=== PATIENT | male | born 1955 | race Caucasian/White ===

== ENCOUNTER 2021-03-27 20:57 | Inpatient (IN) | payer MEDICARE ==
[~2021-03-27 20:57] MED LIST: Iopamidol-370 76% 500 ML 1 ML ONE
[2021-03-27] MEDS ORDERED: Morphine 4 MG/ML VIAL ONE (21:34)
[2021-03-27] MEDS ORDERED: Ondansetron PF 4 MG/2 ML Vial ONE (21:35)
[2021-03-27] MEDS ORDERED: Tranexamic Acid 1,000 MG/10 ML VIAL ONE (21:35)
[2021-03-27 21:51] LABS: #Basophils 0.1 thou/uL (0.0-0.2); #Eosinphils 0.2 thou/uL (0.0-0.7); #Lymphocytes 1.9 thou/uL (1.20-3.40); #Monocytes 0.7 thou/uL (0.11-0.59); #Neutrophils 5.6 thou/uL (1.40-6.50); %Basophils 0.9 % (0.0-1.0); %Eosinophils 1.8 % (0.0-10.0); %Lymphocytes 22.9 % (21.0-51.0); %Monocytes 8.7 % (0.0-10.0); %Neutrophils 65.7 % (42.0-75.0); Hemoglobin 15.8 g/dL (14.0-18.0); Mean Corpuscular HGB CONC 34.2 g/dL (32.0-36.0); Mean Corpuscular Hemoglobin 32.7 pg (27.0-31.0); Mean Corpuscular Volume 95.5 fL (78.0-98.0); Mean Platelet Volume 6.9 fL (7.4-10.4); Platelet Count 253 thou/uL (130-400); RBC Distribution Width 12.2 % (11.5-14.5); Red Blood Cell (RBC) Count 4.83 mill/uL (4.70-6.10); White Blood Cell (WBC) Count 8.5 thou/uL (4.8-10.8)
[2021-03-27 22:06] LABS: INR-International Normal Ratio 0.9; PTT 29.3 sec (22.9-36.1); Prothrombin Time 12.4 sec (12.0-14.7)
[2021-03-27 22:12] LABS: ALT (SGPT) 27 U/L (8-55); AST (SGOT) 26 U/L (5-34); Albumin 4.6 g/dL (3.4-4.8); Alkaline Phosphatase 103 U/L (40-110); Anion Gap 18 mmol/L (10-20); BUN (Urea Nitrogen) 8 mg/dL (8.4-25.7); Bilirubin, Total 0.6 mg/dL (0.2-1.2); Calc. Creatinine Clearance 0 mL/min (70-130); Calcium 9.5 mg/dL (7.8-10.44); Carbon Dioxide 19 mmol/L (23-31); Chloride 91 mmol/L (98-107); Globulin 3.1 g/dL (2.4-3.5); Glucose 97 mg/dL (80-115); Lipase 23 U/L (8-78); Potassium 4.1 mmol/L (3.5-5.1); Protein, Total 7.7 g/dL (5.8-8.1); Sodium 124 mmol/L (136-145)
[2021-03-27] MEDS ORDERED: Azithromycin 500 MG VIAL ONE (23:14)
[2021-03-27] MEDS ORDERED: cefTRIAXone\\ROCEPHIN 2 GM VIAL ONE (23:14)
[2021-03-27] MEDS ORDERED: Acetaminophen 325 MG TAB PO PRN (23:15)
[2021-03-27] MEDS ORDERED: Ondansetron ODT 4 MG TAB PO PRN (23:15)
[2021-03-27] MEDS ORDERED: Ondansetron PF 4 MG/2 ML Vial IVP PRN (23:15)
[2021-03-27] MEDS ORDERED: Guaifenesin DM 100-10/5 ML UDCUP PO PRN (23:15)
[2021-03-27] MEDS ORDERED: Lorazepam 2 MG/ML VIAL SLOW IVP PRN (23:23)
[2021-03-28] MEDS ORDERED: Nicotine 14 MG PATCH ONE (00:23)
[2021-03-28] MEDS ORDERED: Thiamine HCl 200 MG/2 ML VIAL IM SCH (00:30)
[2021-03-28 00:31] LABS: Phosphorus 3.8 mg/dL (2.3-4.7)
[2021-03-28] MEDS: Nicotine 14 MG PATCH TD SCH (00:34)
[2021-03-28 00:50] LABS: Anion Gap 15 mmol/L (10-20); BUN (Urea Nitrogen) 8 mg/dL (8.4-25.7); Calc. Creatinine Clearance 0 mL/min (70-130); Calcium 9.3 mg/dL (7.8-10.44); Carbon Dioxide 21 mmol/L (23-31); Chloride 94 mmol/L (98-107); Glucose 95 mg/dL (80-115); Potassium 4.3 mmol/L (3.5-5.1); Sodium 126 mmol/L (136-145)
[2021-03-28 00:57] LABS: Troponin I 0.021 ng/mL (< 0.028)
[2021-03-28] MEDS ORDERED: Carvedilol 3.125 MG TAB PO SCH ×2 (01:00→19:30)
[2021-03-28 01:03] VITALS: BMI 24.3
[2021-03-28] MEDS ORDERED: Sodium Chloride 0.9% 1,000 ML IV SCH (01:30)
[2021-03-28 01:49] LABS: SARS-CoV-2 NAA Rapid Test Not Detected (NotDetected)
[2021-03-28 03:37] LABS: Bacteria/HPF None Seen HPF (None Seen); Bilirubin Negative (Negative); Blood, Urine Negative (Negative); Clarity Clear (Clear); Glucose, Urine (Dipstick) Normal (Negative); Ketone, Urine Negative (Negative); Leukocyte Negative Leu/uL (Negative); Nitrite 2+ (Negative); Protein, Urine (Dipstick) Negative (Neg-Trace); RBC/HPF 0-3 HPF (0-3); Specific Gravity, Urine 1.041 (1.002-1.036); Squamous Epithelial None Seen HPF (0-3); Urobilinogen Normal mg/dL (Less than 2); WBC/HPF 0-3 HPF (0-3); pH, Urine 6.5 (5.0-9.0)
[2021-03-28 05:47] LABS: #Eosinphils 0.1 thou/uL (0.0-0.7); #Lymphocytes 1.6 thou/uL (1.20-3.40); #Monocytes 0.7 thou/uL (0.11-0.59); #Neutrophils 6.9 thou/uL (1.40-6.50); %Basophils 0.5 % (0.0-1.0); %Eosinophils 0.7 % (0.0-10.0); %Lymphocytes 17.4 % (21.0-51.0); %Monocytes 7.8 % (0.0-10.0); %Neutrophils 73.6 % (42.0-75.0); Hemoglobin 14.6 g/dL (14.0-18.0); Mean Corpuscular HGB CONC 34.2 g/dL (32.0-36.0); Mean Corpuscular Hemoglobin 32.8 pg (27.0-31.0); Mean Corpuscular Volume 95.9 fL (78.0-98.0); Mean Platelet Volume 6.9 fL (7.4-10.4); Platelet Count 227 thou/uL (130-400); RBC Distribution Width 12.3 % (11.5-14.5); Red Blood Cell (RBC) Count 4.45 mill/uL (4.70-6.10); White Blood Cell (WBC) Count 9.4 thou/uL (4.8-10.8)
[2021-03-28 06:06] LABS: Anion Gap 11 mmol/L (10-20); BUN (Urea Nitrogen) 10 mg/dL (8.4-25.7); Calc. Creatinine Clearance 113 mL/min (70-130); Calcium 9.2 mg/dL (7.8-10.44); Carbon Dioxide 24 mmol/L (23-31); Chloride 97 mmol/L (98-107); Glucose 88 mg/dL (80-115); Potassium 4.4 mmol/L (3.5-5.1); Sodium 128 mmol/L (136-145)
[2021-03-28 06:11] LABS: Troponin I 0.018 ng/mL (< 0.028)
[2021-03-28] MEDS ORDERED: Lisinopril 10 MG TAB PO SCH (09:00)
[2021-03-28] MEDS: Folic Acid 1 MG TAB PO SCH (12:08)
[2021-03-28] MEDS: Multivitamin W/ Minerals 1 TAB PO SCH (12:09)
[2021-03-28 12:37] LABS: Hemoglobin 14.8 g/dL (14.0-18.0)
[2021-03-28] MEDS ORDERED: cefTRIAXone\\ROCEPHIN 1 GM in Sodium Chloride 0.9% 100 ML IVPB SCH (23:00)
[2021-03-28] MEDS ORDERED: Azithromycin 500 MG in Sodium Chloride 0.9% 250 ML 250 ML IVPB SCH (23:59)
[2021-03-29] MEDS: Nicotine 14 MG PATCH TD SCH (01:47)
[2021-03-29] MEDS: Multivitamin W/ Minerals 1 TAB PO SCH (08:31)
[2021-03-29] MEDS: Lisinopril 20 MG TAB PO SCH (08:31)
[2021-03-29] MEDS: Carvedilol 6.25 MG TAB PO SCH ×2 (08:32→16:45)
[2021-03-29] MEDS: Thiamine 100 MG TAB PO SCH (08:32)
[2021-03-29] MEDS: Folic Acid 1 MG TAB PO SCH (08:32)
[2021-03-29] MEDS: Magnesium Oxide 400 MG TAB PO SCH (08:32)
[2021-03-29] MEDS ORDERED: Lorazepam 2 MG/ML VIAL SLOW IVP PRN (15:53)
[2021-03-29] MEDS: Piperacillin/Tazobactam 3.375 GM in Sodium Chloride 0.9% 100 ML IVPB SCH ×2 (16:45→22:49)
[2021-03-29] MEDS: Sodium Chloride 0.9% 1,000 ML IV SCH (16:45)
[2021-03-29 19:12] LABS: Legionella Urinary Ag Negative (Negative); Strep pneumo Urine Ag NEGATIVE (NEGATIVE)
[2021-03-29] MEDS: Atorvastatin Calcium 20 MG TAB PO SCH (21:17)
[2021-03-29] MEDS ORDERED: Loperamide HCl 2 MG CAP PO PRN (21:29)
[2021-03-30] MEDS: Nicotine 14 MG PATCH TD SCH ×2 (00:17→23:43)
[2021-03-30 04:48] LABS: #Basophils 0.1 thou/uL (0.0-0.2); #Eosinphils 0.2 thou/uL (0.0-0.7); #Lymphocytes 1.7 thou/uL (1.20-3.40); #Monocytes 0.8 thou/uL (0.11-0.59); #Neutrophils 5.9 thou/uL (1.40-6.50); %Basophils 1.1 % (0.0-1.0); %Lymphocytes 19.1 % (21.0-51.0); %Neutrophils 68.8 % (42.0-75.0); Hemoglobin 14.1 g/dL (14.0-18.0); Mean Corpuscular HGB CONC 32.2 g/dL (32.0-36.0); Mean Corpuscular Hemoglobin 31.4 pg (27.0-31.0); Mean Corpuscular Volume 97.2 fL (78.0-98.0); Mean Platelet Volume 7.2 fL (7.4-10.4); Platelet Count 204 thou/uL (130-400); RBC Distribution Width 12.4 % (11.5-14.5); White Blood Cell (WBC) Count 8.6 thou/uL (4.8-10.8)
[2021-03-30 05:03] LABS: Anion Gap 14 mmol/L (10-20); BUN (Urea Nitrogen) 12 mg/dL (8.4-25.7); Calc. Creatinine Clearance 93 mL/min (70-130); Calcium 9.3 mg/dL (7.8-10.44); Carbon Dioxide 24 mmol/L (23-31); Chloride 98 mmol/L (98-107); Glucose 109 mg/dL (80-115); Potassium 4.1 mmol/L (3.5-5.1); Sodium 132 mmol/L (136-145)
[2021-03-30] MEDS: Sodium Chloride 0.9% 1,000 ML IV SCH (05:38)
[2021-03-30] MEDS: Piperacillin/Tazobactam 3.375 GM in Sodium Chloride 0.9% 100 ML IVPB SCH ×4 (05:38→21:53)
[2021-03-30] MEDS: Thiamine 100 MG TAB PO SCH (09:22)
[2021-03-30] MEDS: Lisinopril 20 MG TAB PO SCH (09:22)
[2021-03-30] MEDS: Carvedilol 6.25 MG TAB PO SCH (09:22)
[2021-03-30] MEDS: Folic Acid 1 MG TAB PO SCH (09:23)
[2021-03-30] MEDS: Lactinex Tablet PO SCH (09:23)
[2021-03-30] MEDS: Magnesium Oxide 400 MG TAB PO SCH (09:23)
[2021-03-30] MEDS: Multivitamin W/ Minerals 1 TAB PO SCH (09:23)
[2021-03-30] MEDS ORDERED: hydrALAZINE 20 MG/ML VIAL SLOW IVP PRN (11:04)
[2021-03-30] MEDS: hydrALAZINE 25 MG TAB PO SCH ×3 (13:20→21:53)
[2021-03-30] MEDS ORDERED: Carvedilol 6.25 MG TAB PO SCH ×2 (17:00→17:30)
[2021-03-30] MEDS ORDERED: hydrALAZINE 25 MG TAB PO SCH (17:30)
[2021-03-30] MEDS: Atorvastatin Calcium 20 MG TAB PO SCH (21:54)
[2021-03-30] MEDS: Losartan 25 MG TAB PO SCH (21:54)
[2021-03-31 05:00] LABS: #Basophils 0.1 thou/uL (0.0-0.2); #Eosinphils 0.2 thou/uL (0.0-0.7); #Lymphocytes 1.9 thou/uL (1.20-3.40); #Monocytes 0.7 thou/uL (0.11-0.59); #Neutrophils 5.2 thou/uL (1.40-6.50); %Basophils 0.8 % (0.0-1.0); %Eosinophils 2.3 % (0.0-10.0); %Lymphocytes 23.4 % (21.0-51.0); %Neutrophils 64.4 % (42.0-75.0); Hemoglobin 13.6 g/dL (14.0-18.0); Mean Corpuscular HGB CONC 33.6 g/dL (32.0-36.0); Mean Corpuscular Hemoglobin 32.4 pg (27.0-31.0); Mean Corpuscular Volume 96.5 fL (78.0-98.0); Platelet Count 206 thou/uL (130-400); RBC Distribution Width 12.4 % (11.5-14.5); Red Blood Cell (RBC) Count 4.19 mill/uL (4.70-6.10)
[2021-03-31 05:18] LABS: Anion Gap 13 mmol/L (10-20); BUN (Urea Nitrogen) 8 mg/dL (8.4-25.7); Calc. Creatinine Clearance 103 mL/min (70-130); Calcium 9.2 mg/dL (7.8-10.44); Carbon Dioxide 22 mmol/L (23-31); Chloride 98 mmol/L (98-107); Glucose 85 mg/dL (80-115); Potassium 3.9 mmol/L (3.5-5.1); Sodium 129 mmol/L (136-145)
[2021-03-31] MEDS: Piperacillin/Tazobactam 3.375 GM in Sodium Chloride 0.9% 100 ML IVPB SCH ×4 (05:49→23:25)
[2021-03-31] MEDS: Lactinex Tablet PO SCH (08:50)
[2021-03-31] MEDS: Losartan 25 MG TAB PO SCH ×2 (08:50→21:00)
[2021-03-31] MEDS: Multivitamin W/ Minerals 1 TAB PO SCH (08:50)
[2021-03-31] MEDS: Folic Acid 1 MG TAB PO SCH (08:50)
[2021-03-31] MEDS: Thiamine 100 MG TAB PO SCH (08:50)
[2021-03-31] MEDS: Magnesium Oxide 400 MG TAB PO SCH (08:50)
[2021-03-31] MEDS: Carvedilol 25 MG TAB PO SCH ×2 (08:50→17:13)
[2021-03-31] MEDS: hydrALAZINE 25 MG TAB PO SCH ×5 (10:01→21:03)
[2021-03-31] MEDS: Atorvastatin Calcium 20 MG TAB PO SCH (21:00)
[2021-03-31] MEDS: Nicotine 14 MG PATCH TD SCH (23:24)
[2021-04-01] MEDS: Piperacillin/Tazobactam 3.375 GM in Sodium Chloride 0.9% 100 ML IVPB SCH ×2 (05:31→12:15)
[2021-04-01] MEDS: Thiamine 100 MG TAB PO SCH (08:54)
[2021-04-01] MEDS: Losartan 25 MG TAB PO SCH (08:54)
[2021-04-01] MEDS: Carvedilol 25 MG TAB PO SCH ×2 (08:54→17:52)
[2021-04-01] MEDS: Magnesium Oxide 400 MG TAB PO SCH (08:54)
[2021-04-01] MEDS: Multivitamin W/ Minerals 1 TAB PO SCH (08:54)
[2021-04-01] MEDS: Lactinex Tablet PO SCH (08:54)
[2021-04-01] MEDS: Folic Acid 1 MG TAB PO SCH (08:54)
[2021-04-01] MEDS: hydrALAZINE 25 MG TAB PO SCH ×2 (08:58→12:15)
[2021-04-01 15:35] VITALS: BP 136/87; TEMP 98.4
== END 2021-04-01 18:40 | disposition home or self-care (01) | DRG 193 ==
LOC: ERS 20:57 → ERHOLD 23:19 → 2NO 03-28 18:24
PROVIDERS: ADMIT Internal Medicine; ATTEND Hospitalist
DX: J18.9 Pneumonia, unspecified organism (principal); J96.01 Acute respiratory failure with hypoxia; E87.1 Hypo-osmolality and hyponatremia; G45.9 Transient cerebral ischemic attack, unspecified; I25.10 Atherosclerotic heart disease of native coronary artery without angina pectoris; Z95.5 Presence of coronary angioplasty implant and graft; I25.2 Old myocardial infarction; Z95.0 Presence of cardiac pacemaker; I10 Essential (primary) hypertension; E78.5 Hyperlipidemia, unspecified; F17.210 Nicotine dependence, cigarettes, uncomplicated; F10.10 Alcohol abuse, uncomplicated
CPT/HCPCS: 0240U; 36415; 36416; 70450; 71045; 71275; 80048; 80053; 81001; 83690; 83735; 83930; 83935; 84100; 84145; 84300; 84484; 85025; 85610; 85730; 86140; 86850; 86900; 86901; 87070; 87205; 87449; 87899; 93005; 96365; 96366; 96367; 96375; 96376; J0456; J0696; J2270; J2405; J2543; J3411; J3475; J3490; J7050; Q9967